=== PATIENT | female | born 1975 | race Caucasian/White ===

== ENCOUNTER 2020-02-29 17:31 | Emergency (ER) | payer OTHER ==
[2020-02-29 18:19] VITALS: RESP 16
--- NOTE | 2020-02-29 18:58 | ED ---
General Adult HPI - General Chief complaint: Extremity Problem,Nontraumatic Stated complaint: Poss Blood Clot Time Seen by Provider: 02/29/20 17:39 Source: patient, RN notes reviewed, old records reviewed Mode of arrival: ambulatory Limitations: no limitations - History of Present Illness Initial comments: 45-year-old female patient presents to ED with chief complaint right calf pain. Patient is concerned about DVT because she recently had [place] gastric [place]. This was on 02/15. She is not having any abdominal pain and chest pain shortness of breath or any other acute complaints. Systemic: Pt denies fatigue, fever/chills, rash. Pt denies weakness, night sweats, weight loss. Neuro: Pt denies headache, visual disturbances, syncope or pre-syncope. HEENT: Pt denies ocular discharge or irritation, otalgia, rhinorrhea, pharyngitis or notable lymphadenopathy. Cardiopulmonary: Pt denies chest pain, SOB, heart palpitations, dyspnea on exertion. Abdominal/GI: Pt denies abdominal pain, n/v/d. : Pt denies dysuria, burning w/ urination, frequency/urgency. Denies new onset urinary or bowel incontinence. MSK: Pt denies loss of strength or function in extremities. Neuro: Pt denies new onset weakness, paresthesias. - Related Data Allergies Allergy/AdvReac Type Severity Reaction Status Date / Time No Known Allergies Allergy Verified 02/29/20 17:38 Review of Systems ROS Statement: Those systems with pertinent positive or pertinent negative responses have been documented in the HPI. ROS Other: All systems not noted in ROS Statement are negative. Past Medical History Past Medical History: Hypertension History of Any Multi-Drug Resistant Organisms: None Reported Additional Past Surgical History / Comment(s): gastric sleeve Past Psychological History: No Psychological Hx Reported Smoking Status: Never smoker Past Alcohol Use History: None Reported Past Drug Use History: None Reported General Exam - General Exam Comments Initial Comments: Constitutional: NAD, AOX3, Pt has pleasant affect. HEENT: NC/AT, trachea midline, neck supple, no lymphadenopathy. Posterior pharynx non erythematous, without exudates. External ears appear normal, without discharge. Mucous membranes moist. Eyes PERRLA, EOM intact. There is no scleral icterus. No pallor noted. Cardiopulmonary: RRR, no murmurs, rubs or gallops, no JVD noted. Lungs CTAB in anterior and posterior her. No peripheral edema. Abdominal exam: Abdomen soft and non-distended. Abdomen non-tender to palpation in all 4 quadrants. Bowel sounds active in LLQ. No hepatosplenomegaly. No ecchymosis. incision sites clean and dry, no erythema/ Neuro: CN II-XII grossly intact. No nuchal rigidity. MSK: Mild right posterior calf tenderness, homans sign negative bilaterally. No skin changes or erythema. Posterior tibialis and radial pulse +2 bilaterally. Sensation intact in upper and lower extremities. Full active ROM in upper and lower extremities. Limitations: no limitations Course Vital Signs 02/29/20 02/29/20 17:35 19:18 Temperature 98.8 F Pulse Rate 91 Respiratory 16 16 Rate Blood Pressure 104/75 O2 Sat by Pulse 97 Oximetry Medical Decision Making - Medical Decision Making 45-year-old feel patient presents to ED for right calf pain. Patient denying any other acute complaints at this time. Patient vital signs are stable, afebrile. Physical exam displayed mild right calf tenderness no skin changes. US negative for DVT. Patient discharged will follow up with primary care provider and return to ER if any worsening symptoms. Case discussed with Dr. Baltazar. Disposition Clinical Impression: Calf pain Disposition: HOME SELF-CARE Condition: Stable Instructions (If sedation given, give patient instructions): Musculoskeletal Pain (ED) Additional Instructions: follow-up with primary care provider tomorrow. Return to ER if any worsening s ymptoms. Is patient prescribed a controlled substance at d/c from ED?: No Referrals: Stephanie Eduardo MD [Primary Care Provider] - 1-2 days
--- NOTE | 2020-02-29 19:04 | US ---
EXAMINATION TYPE: US venous doppler duplex LE RT DATE OF EXAM: 02/29/2020 6:56 PM COMPARISON: NONE CLINICAL HISTORY: Pain r/o dvt. Pain right leg for 1 week, getting worse SIDE PERFORMED: right TECHNIQUE: The right lower extremity deep venous system is examined utilizing real time linear array sonography with graded compression, doppler sonography and color-flow sonography. VESSELS IMAGED: External Iliac Vein (EIV) Common Femoral Vein Deep Femoral Vein Greater Saphenous Vein * Femoral Vein Popliteal Vein Small Saphenous Vein * Proximal Calf Veins (* superficial vessels) DESCRIPTION: Grayscale, color doppler, spectral doppler imaging performed [facility]. There is normal flow, compressibility, and vascular waveforms. No venous filli ng defects. IMPRESSION: NEGATIVE FOR DVT, RIGHT LOWER EXTREMITY.
[2020-02-29 19:51] VITALS: BP 120/96; PULSE 78; TEMP 97.2
== END 2020-02-29 19:50 | disposition home or self-care (01) ==
LOC: EC 17:31
DX: M79.661 Pain in right lower leg (principal); Z98.84 Bariatric surgery status
CPT/HCPCS: 99284